=== PATIENT | female | born 1960 | race Caucasian/White ===

== ENCOUNTER 2021-08-03 11:51 | Emergency (ER) | payer OTHER ==
[~2021-08-03 11:51] MED LIST: BROMFED DM COU473 ML PO; KEFLEX500 MG PO; MEDROL 4MG DOSEP4 MG PO; ZPAK PO
[2021-08-03 12:59] LABS: BASOPHIL 0.8 % (0-2); EOSINOPHIL 2.6 % (0-5); HCT 38.6 % (37.0-47.0); HGB 11.9 g/dl (12.5-16.0); LYMPHOCYTE 29.1 % (15-48); MCH 26.9 pg (25.0-31.0); MCHC 30.8 g/dL (32.0-36.0); MCV 87.1 fL (78.0-100.0); MONOCYTE 11.3 % (0-12); MPV 8.6 fL (6.0-9.5); NEUTROPHIL 55.6 % (41-80); NRBC 0; PLT 388 K/uL (150-400); RBC 4.43 M/uL (4.20-5.40); RDW 13.5 % (11.5-14.0); WBC 7.8 K/uL (4.0-10.5)
[2021-08-03 13:15] LABS: BUN/CREAT RATIO (CALC) 14.8 RATIO; CREATININE 0.54 mg/dL (0.51-0.95); POTASSIUM 3.5 mmol/L (3.5-5.1)
[2021-08-03] MEDS ORDERED: NAPROXEN500 MG PO (15:28)
== END 2021-08-03 16:05 | disposition home or self-care (01) ==
LOC: FER 11:51
PROVIDERS: Nurse Practitioner Family
DX: M77.52 Other enthesopathy of left foot and ankle (principal); M76.9 Unspecified enthesopathy, lower limb, excluding foot; I10 Essential (primary) hypertension; E78.5 Hyperlipidemia, unspecified; Z91.040 Latex allergy status; Z88.5 Allergy status to narcotic agent; Z79.899 Other long term (current) drug therapy
CPT/HCPCS: 36415; 80048; 85025; 85379; 93971; J1100; J1885; J2060